=== PATIENT | female | born 1990 | race Caucasian/White ===

== ENCOUNTER → 2016-12-20 | Outpatient (CLI) | payer OTHER ==
[~2016-12-20] MED LIST: ALLE180T33 PO; BACT800T5 PO; CRAN1CAP5 PO; EFFE37.527 PO; EFFE75CA75 PO; FLOM5CAP PO; IBUP-1022 PO; IBUPOTC PO; MACR100C43 PO; MONT10TA2 PO; PYRI1TAB5 PO
--- NOTE | 2016-12-20 20:45 | REP ---
Clinical: Nephrolithiasis. Technique: Single supine view of the abdomen and pelvis. Findings: No obvious urinary tract calcifications are appreciated. The bowel gas pattern is nonspecific. No organomegaly. No abnormal calcifications. Skeletal structures are intact. Impression: Normal abdominal radiograph. No obvious urinary tract calcifications. Signed by Maxx Justin MD 12/20/2016 08:35 P
== END ==
LOC: M RAD 20:08
PROVIDERS: ATTEND Physician Assistant Medical
DX: R10.9 Unspecified abdominal pain (principal)

== ENCOUNTER → 2016-12-20 | Outpatient (REF) | payer OTHER ==
[2016-12-20 22:01] LABS: MICROSCOPIC INDICATED? MAN YES (NO)
[2016-12-20 22:08] LABS: BACTERIA, URINE SMALL AMOUNT; SQUAMOUS EPITHELIAL CELL URINE LARGE AMOUNT /hpf (SMALL AMT); TRANSITIONAL EPI CELLS, URINE SMALL AMOUNT /hpf
[2016-12-20 22:09] LABS: HYALINE CAST, URINE NONE SEEN /lpf (0-1); MICROSCOPIC EXAM PERFORMED
== END ==
LOC: M LAB REF 11:37
PROVIDERS: ATTEND Physician Assistant Medical
DX: R30.0 Dysuria (principal)

== ENCOUNTER 2017-03-04 07:28 | Emergency (ER) | payer OTHER ==
[~2017-03-04] VITALS: Ht 157.5 cm; Wt 57.9 kg
[2017-03-04] MEDS ORDERED: ALLE180T33 PO (07:42)
[2017-03-04] MEDS ORDERED: CRAN1CAP5 PO (07:42)
[2017-03-04] MEDS ORDERED: EFFE75CA75 PO (07:42)
[2017-03-04] MEDS ORDERED: IBUPOTC PO (07:42)
[2017-03-04] MEDS ORDERED: IBUP-1022 PO (07:42)
[2017-03-04] MEDS ORDERED: EFFE37.527 PO (07:42)
[2017-03-04] MEDS ORDERED: NS 1,000 ML IV ONE (08:15)
[2017-03-04] MEDS ORDERED: KETOROLAC 30 MG/ML VIAL (J1885) IV ONE (08:15)
[2017-03-04] MEDS ORDERED: ONDANSETRON 4MG/2ML VIAL (J2405) IV ONE (08:15)
[2017-03-04 08:28] LABS: BASO % 0.3 % (0.0-1.0); EOS # 0.1 K/mm3 (0.0-0.50); EOS % 1.5 % (0.0-3.0); LARGE UNSTAINED CELL % 0.5 % (0.0-4.0); LYMPH # 1.2 K/mm3 (1.5-6.5); LYMPH % 15.3 % (24.0-44.0); MONO # 0.3 K/mm3 (0.0-0.8); NEUTROPHILS # 6.1 K/mm3 (1.8-7.7); NEUTROPHILS % 78.4 % (36.0-66.0); PLATELET COUNT, AUTOMATED 180 k/mm3 (150-450); RED CELL DISTRIBUTION WIDTH 12.2 % (11.5-14.5); WHITE BLOOD COUNT 7.8 K/mm3 (4.0-10.0)
[2017-03-04 08:47] LABS: ALBUMIN/GLOBULIN RATIO 1.14 (1.00-1.93); ALKALINE PHOSPHATASE 62 U/L (45-117); ALT/SGPT 18 U/L (12-78); ANION GAP 5 MEQ/L (8-16); AST/SGOT 11 U/L (15-37); BILIRUBIN,TOTAL 0.3 MG/DL (0.2-1.0); BLOOD UREA NITROGEN 17 MG/DL (7-18); CALCIUM LEVEL 8.2 MG/DL (8.5-10.1); CARBON DIOXIDE LEVEL 30 MEQ/L (21-32); CHLORIDE LEVEL 106 MEQ/L (98-107); GLOMERULAR FILTRATION RATE > 60.0 (>60); GLUCOSE, FASTING 72 MG/DL (70-105); POTASSIUM SERUM 3.9 MEQ/L (3.5-5.1); SODIUM LEVEL 141 MEQ/L (136-145); TOTAL PROTEIN 7.5 GM/DL (6.4-8.2)
[2017-03-04] MEDS ORDERED: PYRI1TAB5 PO (09:06)
[2017-03-04] MEDS ORDERED: MACR100C43 PO (09:06)
--- NOTE | 2017-03-04 09:08 | REP ---
CT ABDOMEN PELVIS WITHOUT IV OR ORAL CONTRAST: Renal stone protocol. HISTORY: Right flank pain. COMPARISON: KUB study December 20, 2016. CT FINDINGS: Preliminary digital dry pan feeder radiograph shows an unremarkable bowel gas pattern. Umbilical jewelry is present. The lung bases are clear on axial CT images. The liver and the spleen are normal in size homogeneous in texture. No adrenal lesion is seen. The kidneys are morphologically intact. No hydronephrosis or intrarenal calculus is seen on either side. No pancreatic or gallbladder abnormality is seen. No retroperitoneal mass or adenopathy. Normal caliber aorta. A normal appendix is seen in the right pelvis. No uterine or ovarian abnormality is observed. Urinary bladder is unremarkable. Small and large intestinal bowel loops are unremarkable in the abdomen and pelvis. IMPRESSION: No urinary tract calculus or hydronephrosis seen. Normal appendix noted. No acute abdominal or pelvic abnormality seen. Signed by Kb Lo MD 03/04/2017 02:13 P
[2017-03-04] MEDS ORDERED: NITROFURANTOIN (MACROBID) 100 MG CAP PO ONE (09:15)
[2017-03-04] MEDS ORDERED: TAMSULOSIN 0.4 MG CAP PO ONE (09:15)
[2017-03-04] MEDS ORDERED: PHENAZOPYRIDINE 100 MG TAB PO ONE (09:15)
[2017-03-04 09:21] VITALS: BP 103/57
== END 2017-03-04 09:26 | disposition home or self-care (01) ==
LOC: M ED 07:28
DX: N39.0 Urinary tract infection, site not specified (principal); Z87.891 Personal history of nicotine dependence
CPT/HCPCS: 74176; 80053; 81001; 81025; 85025; 87088; 87186; 96361; 96374; 96375; 99283; J1885; J2405

== ENCOUNTER 2017-03-18 04:51 | Emergency (ER) | payer OTHER ==
[~2017-03-18] VITALS: Ht 157.5 cm; Wt 59.1 kg
[~2017-03-18 04:51] MED LIST changes: -BACT800T5 PO; -FLOM5CAP PO; -MONT10TA2 PO
[2017-03-18 04:54] VITALS: BP 115/68
[2017-03-18] MEDS ORDERED: MONT10TA2 PO (05:02)
[2017-03-18 06:22] LABS: CONTROL LINE UCG INT CTR LINE PRESENT
[2017-03-18] MEDS ORDERED: FLOM5CAP PO (06:37)
[2017-03-18] MEDS ORDERED: PYRI1TAB5 PO (06:37)
[2017-03-18] MEDS ORDERED: BACT800T5 PO (06:37)
[2017-03-18] MEDS ORDERED: PHENAZOPYRIDINE 100 MG TAB PO ONE (06:45)
[2017-03-18] MEDS ORDERED: BACTRIM 160MG/800MG DS TAB PO ONE (06:45)
== END 2017-03-18 06:57 | disposition home or self-care (01) ==
LOC: M ED 04:51
DX: N30.90 Cystitis, unspecified without hematuria (principal); Z87.442 Personal history of urinary calculi; Z79.899 Other long term (current) drug therapy; Z87.891 Personal history of nicotine dependence

== ENCOUNTER → 2017-04-30 | Outpatient (CLI) | payer OTHER ==
[~2017-04-30] MED LIST changes: +AMOX500C PO; +BACT800T5 PO; +DIFL200T PO; +FLOM5CAP PO; +KETO10TAB PO; +MONT10TA2 PO; +NORCOTAB PO
[2017-04-30 14:02] LABS: ALBUMIN 4.4 GM/DL (3.2-5.2); ALBUMIN/GLOBULIN RATIO 1.63 (1.00-1.93); ALKALINE PHOSPHATASE 49 U/L (45-117); ALT/SGPT 17 U/L (12-78); ANION GAP 8 MEQ/L (8-16); AST/SGOT 13 U/L (7-37); BILIRUBIN,TOTAL 0.3 MG/DL (0.2-1.0); BLOOD UREA NITROGEN 18 MG/DL (7-18); CALCIUM LEVEL 8.8 MG/DL (8.5-10.1); CARBON DIOXIDE LEVEL 28 MEQ/L (21-32); CHLORIDE LEVEL 105 MEQ/L (98-107); GLOMERULAR FILTRATION RATE > 60.0 (>60); GLUCOSE, FASTING 83 MG/DL (70-105); POTASSIUM SERUM 4.5 MEQ/L (3.5-5.1); SODIUM LEVEL 141 MEQ/L (136-145); TOTAL PROTEIN 7.1 GM/DL (6.4-8.2)
[2017-04-30 14:10] LABS: CONTROL LINE UCG INT CTR LINE PRESENT
== END ==
LOC: M SMT 09:07
PROVIDERS: ATTEND Nurse Practitioner Family
DX: N39.0 Urinary tract infection, site not specified (principal); N30.10 Interstitial cystitis (chronic) without hematuria
CPT/HCPCS: 36415; 80053; 81001; 84703; 87086; 88108; G0463

== ENCOUNTER 2017-05-13 10:17 | Emergency (ER) | payer OTHER ==
[~2017-05-13] VITALS: Ht 157.5 cm; Wt 58.2 kg
[~2017-05-13 10:17] MED LIST changes: -AMOX500C PO; -DIFL200T PO; -KETO10TAB PO; -NORCOTAB PO
[2017-05-13 10:18] VITALS: BP 108/69
[2017-05-13] MEDS ORDERED: KETO10TAB PO (10:30)
[2017-05-13] MEDS ORDERED: DIFL200T PO (11:57)
[2017-05-13] MEDS ORDERED: NORCOTAB PO (11:57)
[2017-05-13] MEDS ORDERED: AMOX500C PO (11:57)
== END 2017-05-13 12:07 | disposition home or self-care (01) ==
LOC: M ED 10:17
DX: H92.01 Otalgia, right ear (principal); K02.9 Dental caries, unspecified; K13.79 Other lesions of oral mucosa; Z79.899 Other long term (current) drug therapy

== ENCOUNTER 2017-06-10 01:08 | Emergency (ER) | payer OTHER ==
[~2017-06-10] VITALS: Ht 157.5 cm; Wt 58.2 kg
[~2017-06-10 01:08] MED LIST changes: +AMOX500C PO; +DIFL200T PO; +KETO10TAB PO; +NORCOTAB PO
[2017-06-10 01:09] VITALS: BP 119/68
[2017-06-10] MEDS ORDERED: URIB118C (01:23)
[2017-06-10] MEDS ORDERED: NORCO 5/325MG TABLET (BULK FOR ED) PO ONE (01:30)
[2017-06-10] MEDS ORDERED: AMOX500C PO (01:31)
== END 2017-06-10 01:51 | disposition home or self-care (01) ==
LOC: M ED 01:08
DX: K08.89 Other specified disorders of teeth and supporting structures (principal); F41.9 Anxiety disorder, unspecified; F33.9 Major depressive disorder, recurrent, unspecified; D69.3 Immune thrombocytopenic purpura; Z87.442 Personal history of urinary calculi; Z79.899 Other long term (current) drug therapy; Z87.891 Personal history of nicotine dependence